=== PATIENT | female | born 1945 | race Caucasian/White ===

== ENCOUNTER 2017-02-10 04:23 | Observation (INO) ==
--- NOTE | 2017-02-10 04:39 | Emergency Department Note ---
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 She awoke prior to arrival with a relatively severe epigastric burning pain associated with nausea and one episode of vomiting. She states she threw up some yellow, bitter fluid without blood. She was having pain in the epigastrium that did not radiate to her chest or back. She denies that she is having chest pain, palpitations or any significant shortness of breath. She states she might have been "slightly short of breath". She has not been having diaphoresis, weakness or dizziness. She denies diarrhea, constipation or any bloody or black stools. She denies any type of fevers or chills. She has not had any recent change in food or concerning a foodborne illness nor any ill exposures. She has come in by EMS and states that her pain is now "hurtin' just a little". She still states she has slight nausea. She denies any similar episodes in the past. She states she has had a hysterectomy in the past but denies cholecystectomy, appendectomy or any other abdominal procedures. 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 Denies: diarrhea, fever, chills , constipation, dysuria, hematemesis, hematochezia, melena, hematuria, anorexia , syncope Treatments prior to arrival: none - Related Data Home Medications Medication Instructions Recorded Confirmed Cilostazol 100 mg PO BID 05/22/15 02/10/17 Levothyroxine [Synthroid] 0.05 mg PO DAILY 05/22/15 02/10/17 Lisinopril [Zestril] 5 mg PO DAILY 05/22/15 02/10/17 Lovastatin 40 mg PO HS 05/22/15 02/10/17 Metoprolol [Lopressor] 25 mg PO BID 05/22/15 02/10/17 Ranolazine [Ranexa] 500 mg PO BID 05/22/15 02/10/17 metFORMIN [Glucophage] 500 mg PO DAILY 05/22/15 02/10/17 Clopidogrel [Plavix] 75 mg PO DAILY 07/01/16 02/10/17 Allergies Allergy/AdvReac Type Severity Reaction Status Date / Time Penicillins Allergy Hives Verified 02/10/17 04:29 All systems ED: reviewed and negative except as stated. Abdominal Pain PMH - Past Medical History Medical history: Reports: diabetes, hyperlipidemia, hypertension, myocardial infarction, thyroid disease Denies: diverticulitis, pancreatitis, GI bleed Female Surgical History: Reports: angioplasty/stent, carotid endarterectomy ( Bilateral), cataract, hysterectomy Psychiatric history: Reports: no psych history - Social History Smoking status: Never smoker Alcohol use: Reports: none Physical Exam - General Limitations: no limitations General appearance: alert, in no apparent distress - Head Head exam: atraumatic, normocephalic, normal inspection - Eye Eye exam: Present: normal appearance, PERRL, EOMI. Absent: scleral icterus, conjunctival injection - ENT ENT exam: normal exam, normal oropharynx, mucous membranes moist - Neck Neck exam: Present: normal inspection, full ROM, trachea midline - Chest Chest inspection: Present: normal inspection, symmetric chest wall rise - Respiratory Respiratory exam: Present: normal lung sounds bilaterally. Absent: respiratory distress, wheezes, prolonged expiratory phase - Cardiovascular Cardiovascular exam: Present: regular rate, normal rhythm, normal heart sounds. Absent: tachycardia - Abdominal Exam Abdominal exam: Present: soft, tenderness, normal bowel sounds. Absent: distention, guarding, rebound, rigidity, psoas sign, obturator sign, tenderness at McBurney's Point, pulsatile mass Abdominal tenderness: Present: RUQ, epigastrium, moderate - Extremities Exam Extremities exam: Present: normal inspection, full ROM, normal capillary refill. Absent: tenderness, pedal edema, calf tenderness - Expanded Lower Extremity Exam Neurovascular/Tendon exam: Present: normal capillary refill. Absent: motor deficit, sensory deficit, tendon deficit Gait: observed and normal - Back Exam Back exam: Present: normal inspection, full ROM. Absent: tenderness, CVA tenderness (R), CVA tenderness (L) - Neurological Exam Neurological exam: Present: alert, oriented X3 - Psychiatric Psychiatric exam: Present: normal affect, normal mood - Skin Skin exam: Present: warm, dry, intact, normal color. Absent: diaphoresis, pallor Course Course Narrative: 0515: Given the patient's mild hyperkalemia, decreased bicarbonate and acute renal insufficiency with an episode of undifferentiated abdominal pain and vomiting, I believe it would be prudent to have her in the hospital for continued hydration and observation. We are establishing an IV and will administer a fluid bolus, maintenance saline and a dose of Protonix. I am awaiting the official radiology read prior to contacting Dr. Jenkins for the observation of the patient. 0610: The preliminary radiologist reading is in concurrence with my own. We are calling Dr. Jenkins to coordinate her further inpatient observation. Vital Signs Temperature 97.7 F 02/10/17 04:24 Pulse Rate 82 02/10/17 04:24 Respiratory Rate 22 02/10/17 04:24 Blood Pressure 148/78 02/10/17 04:24 O2 Sat by Pulse Oximetry 100 02/10/17 04:24 Temperature 97.7 F 02/10/17 04:24 Pulse Rate 77 02/10/17 05:36 Respiratory Rate 20 02/10/17 05:36 Blood Pressure 135/62 02/10/17 05:36 O2 Sat by Pulse Oximetry 99 02/10/17 05:36 Oxygen Delivery Oxygen Delivery Room Air Abdominal Pain - Differential Diagnosis Differential Diagnosis: Likely: abdominal pain non-specific, pancreatitis, other (Biliary colic) - Medical Records Medical records reviewed: Yes I reviewed the patient's medical records. - Lab Data Lab results reviewed: Yes I reviewed the patient's lab results. Result diagrams: 02/10/17 04:48 02/10/17 04:48 Lab Results 02/10/17 02/10/17 02/10/17 Range/Units 04:45 04:48 04:48 WBC 5.7 (4.3-11.1) K/mcL RBC 2.86 L (3.82-4.97) M/mcL Hgb 9.0 L (11.5-15.4) g/dL Hct 27.6 L (35.3-44.9) % MCV 96.5 (83.0-100.0) fL MCH 31.5 (28.0-33.3) pg MCHC 32.6 (31.6-35.5) g/dL RDW 13.5 (11.5-14.5) % Plt Count 195 (140-400) K/mcL MPV 10.0 (9.4-12.4) fL Immature Gran % 0.4 (0-4) % Seg Neutrophils % 75.6 % Lymphocytes % 15.6 % Monocytes % 6.8 % Eosinophils % 1.4 % Basophils % 0.2 % Neutrophils # 4.3 (1.6-8.9) K/mcL Lymphocytes # 0.9 (0.6-4.6) K/mcL Monocytes # 0.4 (0.0-1.3) K/mcL Eosinophils # 0.1 (0.0-0.6) K/mcL Basophils # 0.0 (0.0-0.2) K/mcL Sodium 139 (136-145) mEq/L Potassium 5.2 H (3.5-4.5) mEq/L Chloride 110 H (98-109) mEq/L Carbon Dioxide 18 L (19-29) mEq/L BUN 23 H (7-20) mg/dL Creatinine 1.89 H (0.57-1.11) mg/dL Est GFR ( Amer) 32 L (> 60) Est GFR (Non-Af Amer) 26 L (> 60) BUN/Creatinine Ratio 12 (6-26) Glucose 112 H (70-99) mg/dL Calculated Osmolality 292 (280-300) Calcium 9.3 (8.6-10.8) mg/dL Total Bilirubin 0.4 (0.2-1.2) mg/dL Direct Bilirubin 0.2 (0.0-0.5) mg/dL Indirect Bilirubin 0.2 (0.0-1.2) mg/dL AST 14 (5-34) Units/L ALT 12 (0-55) Units/L Alkaline Phosphatase 57 (38-126) Units/L Troponin I (0-0.03) ng/mL Serum Total Protein 6.7 (6.0-8.3) g/dL Albumin 3.9 (3.5-5.0) g/dL Globulin 2.8 (2.4-3.5) g/dL Albumin/Globulin Ratio 1.4 (1.1-2.2) Amylase 66 (25-125) Units/L Lipase 42 (8-78) Units/L Urine Color Yellow (Yellow) Urine Clarity Clear (Clear) Urine pH 5.0 (5.0-8.0) pH Units Ur Specific [place] 1.025 (1.010-1.025) Urine Protein Negative (Neg-Trace) mg/dL Urine Glucose (UA) Normal (Normal) mg/dL Urine Ketones Trace H (Negative) mg/dL Urine Blood Negative (Negative) Urine Nitrite Positive A (Negative) Urine Bilirubin Small H (Negative) Urine Urobilinogen Normal (Normal) mg/dL Ur Leukocyte Esterase Small H (Negative) Urine Microscopic RBC 3-5 H (0-3) per hpf Urine Microscopic WBC 5-15 H (0-3) per hpf Ur Squamous Epith Cells Few (None-Few) per lpf Urine Bacteria Few (None-Few) per hpf Ur Culture Indicated? YES A (NO) 02/10/17 Range/Units 04:48 WBC (4.3-11.1) K/mcL RBC (3.82-4.97) M/mcL Hgb (11.5-15.4) g/dL Hct (35.3-44.9) % MCV (83.0-100.0) fL MCH (28.0-33.3) pg MCHC (31.6-35.5) g/dL RDW (11.5-14.5) % Plt Count (140-400) K/mcL MPV (9.4-12.4) fL Immature Gran % (0-4) % Seg Neutrophils % % Lymphocytes % % Monocytes % % Eosinophils % % Basophils % % Neutrophils # (1.6-8.9) K/mcL Lymphocytes # (0.6-4.6) K/mcL Monocytes # (0.0-1.3) K/mcL Eosinophils # (0.0-0.6) K/mcL Basophils # (0.0-0.2) K/mcL Sodium (136-145) mEq/L Potassium (3.5-4.5) mEq/L Chloride (98-109) mEq/L Carbon Dioxide (19-29) mEq/L BUN (7-20) mg/dL Creatinine (0.57-1.11) mg/dL Est GFR ( Amer) (> 60) Est GFR (Non-Af Amer) (> 60) BUN/Creatinine Ratio (6-26) Glucose (70-99) mg/dL Calculated Osmolality (280-300) Calcium (8.6-10.8) mg/dL Total Bilirubin (0.2-1.2) mg/dL Direct Bilirubin (0.0-0.5) mg/dL Indirect Bilirubin (0.0-1.2) mg/dL AST (5-34) Units/L ALT (0-55) Units/L Alkaline Phosphatase (38-126) Units/L Troponin I 0.00 (0-0.03) ng/mL Serum Total Protein (6.0-8.3) g/dL Albumin (3.5-5.0) g/dL Globulin (2.4-3.5) g/dL Albumin/Globulin Ratio (1.1-2.2) Amylase (25-125) Units/L Lipase (8-78) Units/L Urine Color (Yellow) Urine Clarity (Clear) Urine pH (5.0-8.0) pH Units Ur Specific [place] (1.010-1.025) Urine Protein (Neg-Trace) mg/dL Urine Glucose (UA) (Normal) mg/dL Urine Ketones (Negative) mg/dL Urine Blood (Negative) Urine Nitrite (Negative) Urine Bilirubin (Negative) Urine Urobilinogen (Normal) mg/dL Ur Leukocyte Esterase (Negative) Urine Microscopic RBC (0-3) per hpf Urine Microscopic WBC (0-3) per hpf Ur Squamous Epith Cells (None-Few) per lpf Urine Bacteria (None-Few) per hpf Ur Culture Indicated? (NO) - Radiology Data Radiology results reviewed: Yes I reviewed the patient's radiology results. CT is performed of the abdomen and pelvis without IV or oral contrast. The basilar lung is free of infiltrate, effusion or mass. The liver, pancreas and spleen are unremarkable with exception of a few systolic calcifications. The kidneys or without stone or obstruction but there is a moderate size benign right renal cyst present. The bowel is without inflammatory change, obstruction or perforation. She does have diverticular disease throughout the sigmoid colon without inflammation or perforation. The aorta is normal in caliber. Gallbladder is without distention, wall thickening, edema or visible stone. No acute Abdominal structural processes seem to account for this patient 's epigastric pain and vomiting. This is on my interpretation. Impressions Abdomen/Pelvis CT 02/10/17 04:40 IMPRESSION: No evidence of acute process within the abdomen pelvis with multiple incidental/chronic findings as detailed above. D/ / Luzmaria Gaines MD / Luzmaria Gaines MD Interpreting Provider: Luzmaria Gaines MD - EKG Data EKG attestation: Yes I reviewed and interpreted this EKG. EKG shows normal: sinus rhythm, axis, intervals, QRS complexes, ST-T waves Rate: normal (75) Interpretation: no acute changes, nonspecific ST-T wave changes
[2017-02-10] MEDS ORDERED: Ondansetron ODT 4 MG TAB.RAPDIS SL ONE (04:41)
[2017-02-10 04:53] LABS: Basophils % 0.2 %; Eosinophils # 0.1 K/mcL (0.0-0.6); Eosinophils % 1.4 %; Hematocrit 27.6 % (35.3-44.9); Immature Granulocytes % 0.4 % (0-4); Lymphocytes # 0.9 K/mcL (0.6-4.6); Lymphocytes % 15.6 %; Mean Corpuscular HGB Conc 32.6 g/dL (31.6-35.5); Mean Corpuscular Hemoglobin 31.5 pg (28.0-33.3); Mean Corpuscular Volume 96.5 fL (83.0-100.0); Monocytes # 0.4 K/mcL (0.0-1.3); Monocytes % 6.8 %; Neutrophils # 4.3 K/mcL (1.6-8.9); Platelet Count 195 K/mcL (140-400); Red Blood Count 2.86 M/mcL (3.82-4.97); Red Cell Distribution Width 13.5 % (11.5-14.5); Segmented Neutrophils % 75.6 %
[2017-02-10 05:04] LABS: Bilirubin,Urine Small (Negative); Blood,Urine Negative (Negative); Clarity,Urine Clear (Clear); Color,Urine Yellow (Yellow); Glucose,Urine (UA) Normal (Normal); Ketones,Urine Trace mg/dL (Negative); Leukocyte Esterase,Urine Small (Negative); Nitrite,Urine Positive (Negative); Protein,Urine Negative (Neg-Trace); Specific Gravity,Urine 1.025 (1.010-1.025); Urobilinogen,Urine Normal (Normal)
[2017-02-10 05:11] LABS: Squamous Epithelial Cell,Urine Few per lpf (None-Few)
[2017-02-10 05:12] LABS: Bacteria,Urine Few per hpf (None-Few)
[2017-02-10 05:12] LABS: Albumin 3.9 g/dL (3.5-5.0); Albumin/Globulin Ratio 1.4 (1.1-2.2); Bilirubin,Direct 0.2 mg/dL (0.0-0.5); Bilirubin,Indirect 0.2 mg/dL (0.0-1.2); Bilirubin,Total 0.4 mg/dL (0.2-1.2); Calcium 9.3 mg/dL (8.6-10.8); Globulin 2.8 g/dL (2.4-3.5); Potassium 5.2 mEq/L (3.5-4.5); Total Protein 6.7 g/dL (6.0-8.3)
[2017-02-10] MEDS ORDERED: 0.9 % Sodium Chloride 500 ML IVC ONE (05:18)
[2017-02-10] MEDS ORDERED: Pantoprazole 40 MG VIAL IVP ONE (05:18)
[2017-02-10] MEDS ORDERED: 0.9 % Sodium Chloride 1,000 ML IVC SCH ×2 (05:30→08:16)
[2017-02-10] MEDS ORDERED: *HR* Dextrose 50 % in Water (Syg) 50 ML SYRINGE IVP PRN (08:16)
[2017-02-10] MEDS ORDERED: MOM Conc 10 ML UD.LIQ PO PRN (08:16)
[2017-02-10] MEDS ORDERED: Acetaminophen 325 MG TABLET PO PRN (08:16)
[2017-02-10] MEDS ORDERED: D5% in Water 1,000 ML IVC PRN (08:16)
[2017-02-10] MEDS ORDERED: Dextrose Gel 15 GM PO PRN ×2 (08:16)
[2017-02-10] MEDS ORDERED: Naloxone 0.4 MG/ML INJ IVP PRN (08:16)
[2017-02-10] MEDS ORDERED: Ondansetron 4 MG/2 ML VIAL IVP PRN (08:16)
[2017-02-10] MEDS: Insulin LISPRO 300 UNITS/3 ML VIAL SQ SCH ×3 (08:43→16:37)
[2017-02-10] MEDS: Ranolazine 500 MG TAB.ER.12H PO SCH ×2 (08:49→20:37)
[2017-02-10] MEDS: Levothyroxine 25 MCG TABLET PO SCH (08:52)
--- NOTE | 2017-02-10 11:44 | Internal Med History&Physical ---
Date of Encounter: 02/10/17 Time of Encounter: 11:15 Assessment and Plan (1) Abdominal pain Current visit: Yes Status: Acute Now resolved. CT scan of abdomen/pelvis was generally unremarkable. We will observe without further workup at this time. Qualifiers: Abdominal location: epigastric Qualified Code(s): R10.13 - Epigastric pain (2) UTI (urinary tract infection) Current visit: Yes Status: Acute She has been started on Rocephin IV. Qualifiers: Urinary tract infection type: acute cystitis Hematuria presence: without hematuria Qualified Code(s): N30.00 - Acute cystitis without hematuria (3) Acute renal insufficiency Current visit: Yes Status: Acute Will hold lisinopril and give IV fluids. Recheck labs in a.m. (4) Hyperkalemia Current visit: Yes Status: Acute Suspect secondary to renal insufficiency and lisinopril. We will give IV fluids and hold lisinopril. Recheck labs in a.m. (5) Anemia Current visit: Yes Status: Acute Will order anemia testing. Qualifiers: Anemia type: unspecified type Qualified Code(s): D64.9 - Anemia, unspecified Internal Medicine - H&P: HPI Chief complaint: Vomiting, abdominal pain Admitted From: Home Plans for Post Hospital Care: Home History of present illness: Ms. Tomas is a 71 year old female who came to emergency room stating she had awakened approximately 0400 to go to the bathroom. She felt nauseated and had an episode of vomiting. She had epigastric abdominal pain. There was no blood in the vomitus. She did not feel well so came to the emergency room. She was evaluated and found to have anemia, acute renal failure, hyperkalemia, and possibly UTI. She was admitted to Med[facility] floor for ongoing care needs. Past Med Surg Social Fam HX - Past Medical History Medical history: diabetes, hyperlipidemia, hypertension, myocardial infarction, thyroid disease Psychiatric history: no psych history - Social History Smoking Status: Never smoker Smokeless Tobacco Status: No Alcohol use: none Drug use: none Internal Medicine - H&P: Meds Cilostazol 100 mg PO BID 05/22/15 [History] Levothyroxine [Synthroid] 0.05 mg PO DAILY 05/22/15 [History] Lisinopril [Zestril] 5 mg PO DAILY 05/22/15 [History] Lovastatin 40 mg PO HS 05/22/15 [History] Metoprolol [Lopressor] 25 mg PO BID 05/22/15 [History] Ranolazine [Ranexa] 500 mg PO BID 05/22/15 [History] metFORMIN [Glucophage] 500 mg PO DAILY 05/22/15 [History] Clopidogrel [Plavix] 75 mg PO DAILY 07/01/16 [History] 3 Allergy/AdvReac Type Severity Reaction Status Date / Time Penicillins Allergy Hives Verified 02/10/17 04:29 All Systems PM: A 10-system review of systems was performed and is negative for pertinent findings except as documented above in the HPI. Review of systems: Gen.: She states her weight has been stable the past few months Cardiovascular: She has history of hypertension. She has known ASPVD and ASHD with a cardiac stent placed approximately 2011. She has not had further stress test since the stent. She denies [place] heart failure DVT or pulmonary embolus Respiratory: She smoked from age [age] up to 4 packs per day. She denies known chronic lung disease and does not use home oxygen. GI: She denies disorders of her liver gallbladder or exocrine pancreas : She denies hematuria dysuria or kidney stones Neurologic: She denies large distribution strokes or seizures Endocrine: She was diagnosed with DM 2 approximately 2006. She has hypothyroidism and hyperlipidemia Hematology/oncology: She denies blood disorders cancers or anemia Psychiatric: She denies anxiety depression or other mental health issues [place] skeletal: She denies arthritis gout or other bone joint or muscle disorders. - Constitutional Vitals: Temp Pulse Resp BP Pulse Ox 98.5 F 79 17 111/59 100 02/10/17 10:44 02/10/17 10:44 02/10/17 10:44 02/10/17 10:44 02/10/17 10:44 Exam: Gen.: She is a well-developed well-nourished female who appears in no acute distress at present time. HEENT: Head is atraumatic and normocephalic. Eyes: EOMI. There is no scleral icterus. Mouth: Mucosa is moist. Neck: Supple and nontender. There is no thyromegaly or adenopathy noted. Heart: Regular without murmurs gallops or ectopics Lungs: No wheezes or crackles are heard. Abdomen:. There is mild tenderness to palpation in the epigastric area. No masses or guarding noted. Bowel sounds are normal. Extremities: There is no cyanosis edema or clubbing noted. Dorsalis pedis and posttibial pulses are 1-2 over 2 bilaterally. Neurologic: Mental status: She is talkative and a good historian. Cranial nerves: Smile is symmetric. Forehead wrinkles bilaterally. Tongue protrudes midline. EOMI. Motor: There is no pronator drift. Cerebellar: Fair to nose is intact bilaterally. Skin: Warm and dry Internal Med - H&P Results - Labs CBC & Chem 7: 02/10/17 04:48 02/10/17 04:48
[2017-02-10 18:04] LABS: Folate 18.4 ng/mL (7.0-31.4)
--- NOTE | 2017-02-10 19:05 | Electrocardiograph Report ---
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
[2017-02-10 19:27] LABS: Ferritin 20 ng/ml (5-204)
[2017-02-10 19:30] LABS: % Iron Saturation 13 % (15-50); Iron 53 mcg/dL (50-170); Transferrin 284 mg/dL (180-382)
[2017-02-10] MEDS ORDERED: Insulin LISPRO 300 UNITS/3 ML VIAL SQ SCH (21:00)
[2017-02-11 06:10] LABS: Basophils % 0.2 %; Eosinophils # 0.1 K/mcL (0.0-0.6); Eosinophils % 2.3 %; Hematocrit 25.2 % (35.3-44.9); Hemoglobin 8.2 g/dL (11.5-15.4); Lymphocytes % 22.2 %; Mean Corpuscular HGB Conc 32.5 g/dL (31.6-35.5); Mean Corpuscular Hemoglobin 31.8 pg (28.0-33.3); Mean Corpuscular Volume 97.7 fL (83.0-100.0); Mean Platelet Volume 10.3 fL (9.4-12.4); Monocytes # 0.3 K/mcL (0.0-1.3); Monocytes % 7.5 %; Platelet Count 180 K/mcL (140-400); Red Blood Count 2.58 M/mcL (3.82-4.97); Red Cell Distribution Width 13.5 % (11.5-14.5); Segmented Neutrophils % 67.8 %
[2017-02-11] MEDS: Levothyroxine 25 MCG TABLET PO SCH (06:25)
[2017-02-11 06:27] LABS: BUN/Creatinine Ratio 11 (6-26); Blood Urea Nitrogen 10 mg/dL (7-20); Calcium 8.7 mg/dL (8.6-10.8); Carbon Dioxide 18 mEq/L (19-29); Chloride 113 mEq/L (98-109); Glucose 107 mg/dL (70-99); Osmolality,Calculated 290 (280-300); Potassium 4.6 mEq/L (3.5-4.5); Sodium 140 mEq/L (136-145); eGFR For African Americans > 60 (> 60); eGFR For Non-African Americans 59 (> 60)
[2017-02-11 06:41] VITALS: BP 117/59
[2017-02-11] MEDS: Insulin LISPRO 300 UNITS/3 ML VIAL SQ SCH (07:21)
[2017-02-11] MEDS: Ranolazine 500 MG TAB.ER.12H PO SCH (09:02)
--- NOTE | 2017-02-11 10:22 | Discharge Summary ---
Date of Encounter: 02/11/17 Time of Encounter: 10:12 - Discharge Diagnosis (1) Abdominal pain Priority: Primary Status: Resolved Qualifiers: Abdominal location: epigastric Qualified Code(s): R10.13 - Epigastric pain (2) UTI (urinary tract infection) Priority: Secondary Status: Acute Qualifiers: Urinary tract infection type: acute cystitis Hematuria presence: without hematuria Qualified Code(s): N30.00 - Acute cystitis without hematuria (3) Acute renal insufficiency Priority: Secondary Status: Resolved (4) Hyperkalemia Priority: Secondary Status: Acute (5) Anemia Priority: Secondary Status: Acute Qualifiers: Anemia type: unspecified type Qualified Code(s): D64.9 - Anemia, unspecified - Discharge Medications Prescriptions: Cefuroxime PO [Ceftin] 500 mg PO Q12HR #6 tablet Ascorbic Acid [Vitamin C] 500 mg PO DAILY #30 tablet.er Ferrous Sulfate 325 mg PO DAILY #30 tablet Lactobacillus [Culturelle] 1 each PO BID #6 cap.sprink Home Medications: Cilostazol 100 mg PO BID 05/22/15 [History] Levothyroxine [Synthroid] 0.05 mg PO DAILY 05/22/15 [History] Lovastatin 40 mg PO HS 05/22/15 [History] Metoprolol [Lopressor] 25 mg PO BID 05/22/15 [History] Ranolazine [Ranexa] 500 mg PO BID 05/22/15 [History] metFORMIN [Glucophage] 500 mg PO DAILY 05/22/15 [History] Clopidogrel [Plavix] 75 mg PO DAILY 07/01/16 [History] Ascorbic Acid [Vitamin C] 500 mg PO DAILY #30 tablet.er 02/11/17 [Rx] Cefuroxime PO [Ceftin] 500 mg PO Q12HR #6 tablet 02/11/17 [Rx] Ferrous Sulfate 325 mg PO DAILY #30 tablet 02/11/17 [Rx] Lactobacillus [Culturelle] 1 each PO BID #6 cap.sprink 02/11/17 [Rx] Allergies/Adverse Reactions: 3 Allergy/AdvReac Type Severity Reaction Status Date / Time Penicillins Allergy Hives Verified 02/10/17 04:29 Date of admission: 02/10/17 06:59 Primary care physician: Harry Quintero CNP Consults: 02/10/17 07:52 Consult to Nutrition [CONS] Routine Comment: Consulting Provider: NUTRITION Reason for Dietary Consult: MST Score - Patient Status Disposition: Home, Self-Care Condition: Good Functional capacity at discharge: independent ambulation Overall status at discharge: patient is progressing back to baseline - Discharge Instructions Follow Up With: Harry Quintero CNP [Advanced Practice Nurse] - 1 week - Diet and Activity Activity: resume usual activities as tolerated Diet: advance to your usual diet Hospital course: Ms. Tomas is a 71 year old female who came to emergency room stating she had awakened approximately 0400 to go to the bathroom. She felt nauseated and had an episode of vomiting. She had epigastric abdominal pain. There was no blood in the vomitus. She did not feel well so came to the emergency room. She was evaluated and found to have anemia, acute renal failure, hyperkalemia, and possibly UTI. She was admitted to [facility] for ongoing care needs. Initial orders were written by the emergency room physician. I saw her on February 10 and performed a history and physical. She had no further abdominal pain or vomiting after admission. She was started empirically on Rocephin for UTI. A final urine culture report is pending at time of this dictation. There was preliminary growth showing greater than 100,000 gram- negative rods. She will continue on Ceftin 500 mg twice a day for 3 additional days at discharge. WBC remained normal and there was resolution of the left shift on the day of discharge. Her lisinopril was held and she was given IV fluids. Potassium improved to 4.6 and BUN and creatinine normalized to 10 and 0.93 respectively with estimated GFR 59 on the day of discharge. She will remain off lisinopril at discharge. Anemia testing showed iron 53, transferrin saturation 13%, transferrin 284, ferritin 20, B12 305, and folate 18.4. She will be prescribed ferrous sulfate with vitamin C at discharge. She will be discharged home and follow with her PCP Harry Quintero CNP within 1 week. - Time Spent with Patient Total time spent providing and/or coordinating discharge services: - Constitutional Vitals: Temp Pulse Resp BP Pulse Ox 98.1 F 78 16 117/59 100 02/11/17 06:39 02/11/17 06:39 02/11/17 06:39 02/11/17 06:39 02/11/17 06:39
== END 2017-02-11 11:30 | disposition home or self-care (01) ==
LOC: EMEROOPIK 04:23 → INPPIK 04:23
PROVIDERS: ADMIT Internal Medicine; ATTEND Internal Medicine

== ENCOUNTER 2017-06-06 16:26 | Observation (INO) ==
--- NOTE | 2017-06-06 16:53 | Emergency Department Note ---
Disposition Clinical Impression: Syncope, Anemia, Hyperkalemia Disposition: Admitted As Inpatient Condition: Fair Referrals: Harry Quintero, MAIL CENSOR [Primary Care Provider] - Forms: ED Satisfaction Letter Time of Disposition: 17:47 (obsv [facility]aly [facility]) Fall HPI - General Chief Complaint: ED Fall Stated Complaint: fall Time Seen by Provider: 06/06/17 16:35 Source: patient Mode of arrival: ambulatory Limitations: no limitations Nursing Notes Reviewed: Yes Vital Signs Reviewed: Yes - History of Present Illness HPI Narrative: 71-year-old female who has had 2 syncopal episodes at home today the first episode she had gotten up she was residential between the bathroom and the kitchen when she collapsed second episode occurred while in the living room she said when she stands up everything blacks out and she collapses she denies hurting or injuring anything denies neck pain thoracic or lumbar pain as result of falling patient has had no loss of bladder bladder control she denies seizure activity she has had cardiac stenting vascular stenting she is not sure if this is the etiology for it as a result she is here to be evaluated Pt Subjective Complaint: fall Onset (ago): hour(s) (10) Fall From: standing Fall Witnessed: no Place Fall Occurred: home Loss of Consciousness: yes, second(s) Prolonged Down Time?: no Symptoms Prior to Fall: lightheadedness, dizziness Context: history of frequent falls Severity: moderate Severity scale (1-10): 5 Associated symptoms (after fall): Reports: weakness, shortness of breath, lightheaded, vertigo. Denies: headache, neck pain, numbness, chest pain, abdominal pain, hematuria, unable to walk, confusion - Related Data Home Medications Medication Instructions Recorded Confirmed Cilostazol 100 mg PO BID 05/22/15 02/10/17 Levothyroxine [Synthroid] 0.05 mg PO DAILY 05/22/15 02/10/17 Lovastatin 40 mg PO HS 05/22/15 02/10/17 Metoprolol [Lopressor] 25 mg PO BID 05/22/15 02/10/17 Ranolazine [Ranexa] 500 mg PO BID 05/22/15 02/10/17 metFORMIN [Glucophage] 500 mg PO DAILY 05/22/15 02/10/17 Clopidogrel [Plavix] 75 mg PO DAILY 07/01/16 02/10/17 Previous Rx's Medication Instructions Recorded Ascorbic Acid [Vitamin C] 500 mg PO DAILY #30 tablet.er 02/11/17 Cefuroxime PO [Ceftin] 500 mg PO Q12HR #6 tablet 02/11/17 Ferrous Sulfate 325 mg PO DAILY #30 tablet 02/11/17 Lactobacillus [Culturelle] 1 each PO BID #6 cap.sprink 02/11/17 Acetaminophen [Tylenol] 500 mg PO Q6HR PRN #20 tablet 03/22/17 Sulfamethoxazole/Trimeth DS 1 each PO BID #20 tablet 03/22/17 [Bactrim DS] Allergies Allergy/AdvReac Type Severity Reaction Status Date / Time Penicillins Allergy Hives Verified 03/22/17 17:51 All systems ED: reviewed and negative except as stated. Review of Systems: As Per HPI Constitutional: Reports: weakness. Denies: fever, chills Eyes: Denies: eye pain, eye discharge ENT ED: Denies: ear pain, throat pain, dental pain, congestion Cardiovascular: Reports: palpitations, syncope. Denies: chest pain, dyspnea on exertion, paroxysmal nocturnal dyspnea Respiratory: Denies: cough, dyspnea, wheezes Gastrointestinal: Denies: abdominal pain, nausea, vomiting Genitourinary: Denies: urgency, dysuria, frequency Musculoskeletal: Denies: back pain, neck pain Integumentary: Denies: rash, abrasion Neurological: Reports: weakness, confusion. 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 - Social History Smoking Status: Former smoker Alcohol use: Reports: none Drug use: Reports: none Physical Exam - General Limitations: other General appearance: alert, in no apparent distress, anxious - Head Head exam: atraumatic, normocephalic, normal inspection - Eye Eye exam: Present: normal appearance, PERRL, EOMI - ENT ENT exam: normal exam, normal oropharynx, mucous membranes moist, TM's normal bilaterally, normal external ear exam - Neck Neck exam: Present: normal inspection, full ROM, trachea midline - Chest Chest inspection: Present: normal inspection, symmetric chest wall rise - Respiratory Respiratory exam: Present: normal lung sounds bilaterally - Cardiovascular Cardiovascular exam: Present: regular rate, normal rhythm, normal heart sounds - Abdominal Exam Abdominal exam: Present: soft, Non-Tender, normal bowel sounds. Absent: mass, pulsatile mass - Extremities Exam Extremities exam: Present: normal inspection, full ROM, normal capillary refill. Absent: tenderness, pedal edema, joint swelling, calf tenderness - Expanded Lower Extremity Exam Neurovascular/Tendon exam: Present: normal capillary refill, normal fine/light touch Gait: observed and normal - Back Exam Back exam: Present: normal inspection, full ROM. Absent: muscle spasm - Neurological Exam Neurological exam: Present: alert, oriented X3, CN II-XII intact, normal gait - Psychiatric Psychiatric exam: Present: normal affect, normal mood - Skin Skin exam: Present: warm, dry, intact, normal color Course Course Narrative: 71-year-old female was seen and examined on laboratory is obtained we will admit her for observation and serial enzymes maintain her on a cardiac rehabilitation specialist to make sure that she does not have any cardiac events she has had multiple stenting both cardiac and vascular quiros as result making sure that she has not had evidence of a stroke myocardial infarction or infectious etiology spoke with Dr. Jenkins he has agrees Vital Signs Temperature 98.1 F 06/06/17 16:28 Pulse Rate 78 06/06/17 16:28 Respiratory Rate 18 06/06/17 16:28 Blood Pressure 120/53 06/06/17 16:28 O2 Sat by Pulse Oximetry 100 06/06/17 16:28 Temperature 98.1 F 06/06/17 16:28 Pulse Rate 78 06/06/17 16:28 Respiratory Rate 18 06/06/17 16:28 Blood Pressure 120/53 06/06/17 16:28 O2 Sat by Pulse Oximetry 100 06/06/17 16:28 Oxygen Delivery Oxygen Delivery Room Air Fall - Differential Diagnosis Likely: syncope, traumatic injury - Medical Records Medical records reviewed: Yes I reviewed the patient's medical records. - Lab Data Lab results reviewed: Yes I reviewed the patient's lab results. Result diagrams: 06/06/17 17:18 06/06/17 17:18 Lab Results 06/06/17 06/06/17 06/06/17 Range/Units 16:32 17:10 17:18 WBC (4.3-11.1) K/mcL RBC (3.82-4.97) M/mcL Hgb (11.5-15.4) g/dL Hct (35.3-44.9) % MCV (83.0-100.0) fL MCH (28.0-33.3) pg MCHC (31.6-35.5) g/dL RDW (11.5-14.5) % Plt Count (140-400) K/mcL MPV (9.4-12.4) fL Immature Gran % (0-4) % Seg Neutrophils % % Lymphocytes % % Monocytes % % Eosinophils % % Basophils % % Neutrophils # (1.6-8.9) K/mcL Lymphocytes # (0.6-4.6) K/mcL Monocytes # (0.0-1.3) K/mcL Eosinophils # (0.0-0.6) K/mcL Basophils # (0.0-0.2) K/mcL PT (9.4-12.1) Seconds INR APTT 27.0 (26.0-36.0) Seconds Sodium (136-145) mEq/L Potassium (3.5-5.1) mEq/L Chloride (98-107) mEq/L Carbon Dioxide (23-29) mEq/L BUN (8-23) mg/dL Creatinine (0.60-1.20) mg/dL Est GFR ( Amer) (> 60) Est GFR (Non-Af Amer) (> 60) BUN/Creatinine Ratio (6-26) Glucose (70-105) mg/dL POC Glucose 118 H (58-89) Calculated Osmolality (280-300) Calcium (8.6-10.3) mg/dL Total Bilirubin (0.3-1.0) mg/dL AST (13-39) Units/L ALT (7-52) Units/L Alkaline Phosphatase (34-104) Units/L Troponin I (< 0.04) ng/mL Serum Total Protein (6.4-8.9) g/dL Albumin (3.5-5.7) g/dL Globulin (2.4-3.5) g/dL Albumin/Globulin Ratio (1.1-2.2) Urine Color Yellow (Yellow) Urine Clarity Cloudy A (Clear) Urine pH 5.0 (5.0-8.0) pH Units Ur Specific Maple 1.015 (1.010-1.025) Urine Protein Trace (Neg-Trace) mg/dL Urine Glucose (UA) Normal (Normal) mg/dL Urine Ketones Trace H (Negative) mg/dL Urine Blood Negative (Negative) Urine Nitrite Negative (Negative) Urine Bilirubin Negative (Negative) Urine Urobilinogen Normal (Normal) mg/dL Ur Leukocyte Esterase Small H (Negative) Urine Microscopic WBC 30-50 H (0-3) per hpf Ur Squamous Epith Cells Many H (None-Few) per lpf Urine Bacteria Moderate H (None-Few) per hpf Urine Mucus Moderate H (Few) Ur Culture Indicated? NO. (NO) 06/06/17 06/06/17 06/06/17 Range/Units 17:18 17:18 17:18 WBC 6.9 (4.3-11.1) K/mcL RBC 2.88 L (3.82-4.97) M/mcL Hgb 9.1 L (11.5-15.4) g/dL Hct 27.9 L (35.3-44.9) % MCV 96.9 (83.0-100.0) fL MCH 31.6 (28.0-33.3) pg MCHC 32.6 (31.6-35.5) g/dL RDW 13.5 (11.5-14.5) % Plt Count 195 (140-400) K/mcL MPV 9.3 L (9.4-12.4) fL Immature Gran % 0.3 (0-4) % Seg Neutrophils % 79.3 % Lymphocytes % 10.7 % Monocytes % 8.2 % Eosinophils % 1.4 % Basophils % 0.1 % Neutrophils # 5.5 (1.6-8.9) K/mcL Lymphocytes # 0.7 (0.6-4.6) K/mcL Monocytes # 0.6 (0.0-1.3) K/mcL Eosinophils # 0.1 (0.0-0.6) K/mcL Basophils # 0.0 (0.0-0.2) K/mcL PT 11.0 (9.4-12.1) Seconds INR 1.0 APTT (26.0-36.0) Seconds Sodium 134 L (136-145) mEq/L Potassium 5.3 H (3.5-5.1) mEq/L Chloride 105 (98-107) mEq/L Carbon Dioxide 24 (23-29) mEq/L BUN 26 H (8-23) mg/dL Creatinine 1.97 H (0.60-1.20) mg/dL Est GFR ( Amer) 30 L (> 60) Est GFR (Non-Af Amer) 25 L (> 60) BUN/Creatinine Ratio 13 (6-26) Glucose 96 (70-105) mg/dL POC Glucose (58-89) Calculated Osmolality 283 (280-300) Calcium 9.0 (8.6-10.3) mg/dL Total Bilirubin 0.4 (0.3-1.0) mg/dL AST 14 (13-39) Units/L ALT 13 (7-52) Units/L Alkaline Phosphatase 54 (34-104) Units/L Troponin I (< 0.04) ng/mL Serum Total Protein 6.4 (6.4-8.9) g/dL Albumin 4.3 (3.5-5.7) g/dL Globulin 2.1 L (2.4-3.5) g/dL Albumin/Globulin Ratio 2.0 (1.1-2.2) Urine Color (Yellow) Urine Clarity (Clear) Urine pH (5.0-8.0) pH Units Ur Specific Maple (1.010-1.025) Urine Protein (Neg-Trace) mg/dL Urine Glucose (UA) (Normal) mg/dL Urine Ketones (Negative) mg/dL Urine Blood (Negative) Urine Nitrite (Negative) Urine Bilirubin (Negative) Urine Urobilinogen (Normal) mg/dL Ur Leukocyte Esterase (Negative) Urine Microscopic WBC (0-3) per hpf Ur Squamous Epith Cells (None-Few) per lpf Urine Bacteria (None-Few) per hpf Urine Mucus (Few) Ur Culture Indicated? (NO) 06/06/17 Range/Units 17:18 WBC (4.3-11.1) K/mcL RBC (3.82-4.97) M/mcL Hgb (11.5-15.4) g/dL Hct (35.3-44.9) % MCV (83.0-100.0) fL MCH (28.0-33.3) pg MCHC (31.6-35.5) g/dL RDW (11.5-14.5) % Plt Count (140-400) K/mcL MPV (9.4-12.4) fL Immature Gran % (0-4) % Seg Neutrophils % % Lymphocytes % % Monocytes % % Eosinophils % % Basophils % % Neutrophils # (1.6-8.9) K/mcL Lymphocytes # (0.6-4.6) K/mcL Monocytes # (0.0-1.3) K/mcL Eosinophils # (0.0-0.6) K/mcL Basophils # (0.0-0.2) K/mcL PT (9.4-12.1) Seconds INR APTT (26.0-36.0) Seconds Sodium (136-145) mEq/L Potassium (3.5-5.1) mEq/L Chloride (98-107) mEq/L Carbon Dioxide (23-29) mEq/L BUN (8-23) mg/dL Creatinine (0.60-1.20) mg/dL Est GFR ( Amer) (> 60) Est GFR (Non-Af Amer) (> 60) BUN/Creatinine Ratio (6-26) Glucose (70-105) mg/dL POC Glucose (58-89) Calculated Osmolality (280-300) Calcium (8.6-10.3) mg/dL Total Bilirubin (0.3-1.0) mg/dL AST (13-39) Units/L ALT (7-52) Units/L Alkaline Phosphatase (34-104) Units/L Troponin I < 0.03 (< 0.04) ng/mL Serum Total Protein (6.4-8.9) g/dL Albumin (3.5-5.7) g/dL Globulin (2.4-3.5) g/dL Albumin/Globulin Ratio (1.1-2.2) Urine Color (Yellow) Urine Clarity (Clear) Urine pH (5.0-8.0) pH Units Ur Specific Maple (1.010-1.025) Urine Protein (Neg-Trace) mg/dL Urine Glucose (UA) (Normal) mg/dL Urine Ketones (Negative) mg/dL Urine Blood (Negative) Urine Nitrite (Negative) Urine Bilirubin (Negative) Urine Urobilinogen (Normal) mg/dL Ur Leukocyte Esterase (Negative) Urine Microscopic WBC (0-3) per hpf Ur Squamous Epith Cells (None-Few) per lpf Urine Bacteria (None-Few) per hpf Urine Mucus (Few) Ur Culture Indicated? (NO) - Radiology Data Radiology results reviewed: Yes I reviewed the patient's radiology results. - EKG Data EKG attestation: Yes I reviewed and interpreted this EKG. EKG results narrative: Sinus rhythm rate 78. R1 52 QRS 84 QT 360 axis LIX Critical Care Time Critical Care Time: No
[2017-06-06 17:17] LABS: Bilirubin,Urine Negative (Negative); Blood,Urine Negative (Negative); Clarity,Urine Cloudy (Clear); Color,Urine Yellow (Yellow); Glucose,Urine (UA) Normal (Normal); Ketones,Urine Trace mg/dL (Negative); Leukocyte Esterase,Urine Small (Negative); Nitrite,Urine Negative (Negative); Protein,Urine Trace mg/dL (Neg-Trace); Specific Gravity,Urine 1.015 (1.010-1.025); Urobilinogen,Urine Normal (Normal)
[2017-06-06 17:22] LABS: Bacteria,Urine Moderate per hpf (None-Few); Mucus,Urine Moderate (Few); Squamous Epithelial Cell,Urine Many per lpf (None-Few); WBC,Urine 30-50 per hpf (0-3)
[2017-06-06 17:26] LABS: Basophils % 0.1 %; Eosinophils # 0.1 K/mcL (0.0-0.6); Eosinophils % 1.4 %; Hematocrit 27.9 % (35.3-44.9); Hemoglobin 9.1 g/dL (11.5-15.4); Immature Granulocytes % 0.3 % (0-4); Lymphocytes # 0.7 K/mcL (0.6-4.6); Lymphocytes % 10.7 %; Mean Corpuscular HGB Conc 32.6 g/dL (31.6-35.5); Mean Corpuscular Hemoglobin 31.6 pg (28.0-33.3); Mean Corpuscular Volume 96.9 fL (83.0-100.0); Mean Platelet Volume 9.3 fL (9.4-12.4); Monocytes # 0.6 K/mcL (0.0-1.3); Monocytes % 8.2 %; Neutrophils # 5.5 K/mcL (1.6-8.9); Platelet Count 195 K/mcL (140-400); Red Blood Count 2.88 M/mcL (3.82-4.97); Red Cell Distribution Width 13.5 % (11.5-14.5); Segmented Neutrophils % 79.3 %
[2017-06-06 17:41] LABS: Albumin 4.3 g/dL (3.5-5.7); Bilirubin,Total 0.4 mg/dL (0.3-1.0); Globulin 2.1 g/dL (2.4-3.5); Potassium 5.3 mEq/L (3.5-5.1); Total Protein 6.4 g/dL (6.4-8.9)
[2017-06-06] MEDS ORDERED: *HR* Dextrose 50 % in Water (Syg) 50 ML SYRINGE IVP PRN (20:13)
[2017-06-06] MEDS ORDERED: Ondansetron ODT 4 MG TAB.RAPDIS SL PRN (20:13)
[2017-06-06] MEDS ORDERED: Dextrose Gel 15 GM PO PRN ×2 (20:13)
[2017-06-06] MEDS ORDERED: Naloxone 0.4 MG/ML INJ IVP PRN (20:13)
[2017-06-06] MEDS ORDERED: D5% in Water 1,000 ML IVC PRN (20:13)
[2017-06-06] MEDS: Lactobacillus 1 EACH CAP.SPRINK PO SCH (22:40)
[2017-06-06] MEDS: Ranolazine 500 MG TAB.ER.12H PO SCH (22:40)
[2017-06-06] MEDS: 0.9 % Sodium Chloride 1,000 ML IVC SCH (22:42)
[2017-06-07] MEDS ORDERED: 0.9 % Sodium Chloride 250 ML IVC ONE (04:45)
[2017-06-07] MEDS: Levothyroxine 25 MCG TABLET PO SCH (06:08)
[2017-06-07] MEDS: 0.9 % Sodium Chloride 1,000 ML IVC SCH (06:15)
[2017-06-07 06:37] LABS: Basophils % 0.2 %; Eosinophils # 0.1 K/mcL (0.0-0.6); Eosinophils % 2.3 %; Hematocrit 23.2 % (35.3-44.9); Hemoglobin 7.6 g/dL (11.5-15.4); Immature Granulocytes % 0.2 % (0-4); Lymphocytes # 0.5 K/mcL (0.6-4.6); Lymphocytes % 11.3 %; Mean Corpuscular HGB Conc 32.8 g/dL (31.6-35.5); Mean Corpuscular Hemoglobin 31.8 pg (28.0-33.3); Mean Corpuscular Volume 97.1 fL (83.0-100.0); Monocytes # 0.3 K/mcL (0.0-1.3); Monocytes % 7.7 %; Neutrophils # 3.5 K/mcL (1.6-8.9); Platelet Count 155 K/mcL (140-400); Red Blood Count 2.39 M/mcL (3.82-4.97); Red Cell Distribution Width 13.7 % (11.5-14.5); Segmented Neutrophils % 78.3 %
[2017-06-07] MEDS: Insulin LISPRO 300 UNITS/3 ML VIAL SQ SCH ×3 (09:00→23:17)
[2017-06-07] MEDS ORDERED: *HR* Metformin 500 MG TABLET PO SCH (09:00)
[2017-06-07] MEDS: Lactobacillus 1 EACH CAP.SPRINK PO SCH ×2 (09:00→23:16)
[2017-06-07] MEDS: Ranolazine 500 MG TAB.ER.12H PO SCH ×2 (09:00→23:15)
[2017-06-07] MEDS: Ascorbic Acid 500 MG TABLET PO SCH (09:00)
--- NOTE | 2017-06-07 15:59 | Internal Med History&Physical ---
Date of Encounter: 06/07/17 Time of Encounter: 15:20 Assessment and Plan (1) Syncope Current visit: Yes Status: Acute Etiology not obvious. She has been placed on telemetry. Orthostatic vital signs will be checked in a.m. Lisinopril apparently was restarted after discharge from [facility] in January. This will be held for now and blood pressure monitored Qualifiers: Syncope type: unspecified Qualified Code(s): R55 - Syncope and collapse (2) UTI (urinary tract infection) Current visit: No Status: Acute Urine culture was ordered. She was given Rocephin IV in emergency room. I will start her on Septra DS twice a day empirically. Qualifiers: Urinary tract infection type: acute cystitis Hematuria presence: without hematuria Qualified Code(s): N30.00 - Acute cystitis without hematuria (3) Acute renal insufficiency Current visit: No Status: Resolved We will hold lisinopril and start IV fluids. Recheck labs in a.m. (4) Hyperkalemia Current visit: Yes Status: Acute Suspect due to acute renal insufficiency with use of lisinopril. We will give IV fluids and hold lisinopril. Recheck labs in a.m. (5) Anemia Current visit: Yes Status: Acute Unimproved despite use of ferrous sulfate and vitamin C since January. We will recheck anemia testing in a.m. Qualifiers: Anemia type: unspecified type Qualified Code(s): D64.9 - Anemia, unspecified (6) Hypertension Current visit: Yes Status: Chronic We will hold lisinopril but continue Lopressor. We will check orthostatic vital signs in a.m. Qualifiers: Hypertension type: essential hypertension Qualified Code(s): I10 - Essential (primary) hypertension Internal Medicine - H&P: HPI Chief complaint: Syncope Admitted From: Emergency Dept Plans for Post Hospital Care: Home History of present illness: Ms. Tomas is a 71 year old female who came to emergency room stating she had 3 syncopal episodes at home. Each episode occurred while she was standing. She perceives she attempted catch herself. There was no injury sustained and she estimates she was unconscious for approximately 5 minutes with each episode. There was no loss of bowel or bladder control. She called the squad after the third episode and was brought to emergency room and evaluated. She was admitted to [facility] floor for ongoing care needs. She states she feels back to her baseline now. She denies any previous syncopal or near-syncopal episodes. She denies orthostatic symptoms on arising from a seated position. Her neurologic history is negative for large distribution strokes or seizures. Her cardiovascular history is pertinent for hypertension. She has known ASPVD and ASHD with a cardiac stent placed approximately 2011. She has not had further stress test since the stent. She denies ME heart failure DVT or pulmonary embolus. Past Med Surg Social Fam HX - Past Medical History Medical history: diabetes, other Psychiatric history: no psych history - Past Surgical History Surgical History: angioplasty/stent - Social History Smoking Status: Former smoker Smokeless Tobacco Status: No Alcohol use: none Drug use: none - Family History Brother Name: Raman Living Status: Hx Family Cancer: Yes Internal Medicine - H&P: Meds Cilostazol 100 mg PO BID 05/22/15 [History] Levothyroxine [Synthroid] 0.05 mg PO DAILY 05/22/15 [History] Lovastatin 40 mg PO HS 05/22/15 [History] Metoprolol [Lopressor] 25 mg PO BID 05/22/15 [History] Ranolazine [Ranexa] 500 mg PO BID 05/22/15 [History] metFORMIN [Glucophage] 500 mg PO DAILY 05/22/15 [History] Clopidogrel [Plavix] 75 mg PO DAILY 07/01/16 [History] Ascorbic Acid [Vitamin C] 500 mg PO DAILY #30 tablet.er 02/11/17 [Rx] Cefuroxime PO [Ceftin] 500 mg PO Q12HR #6 tablet 02/11/17 [Rx] Ferrous Sulfate 325 mg PO DAILY #30 tablet 02/11/17 [Rx] Acetaminophen [Tylenol] 500 mg PO Q6HR PRN #20 tablet 03/22/17 [Rx] 3 Allergy/AdvReac Type Severity Reaction Status Date / Time Penicillins Allergy Hives Verified 03/22/17 17:51 All Systems PM: A 10-system review of systems was performed and is negative for pertinent findings except as documented above in the HPI. Review of systems: Review of systems from her January 2017 [facility] hospitalization were reviewed and revised as below. Gen.: Her weight has decreased from 71.532 kg on 02/11/2017 to 61.235 kg on admission now. She was unaware of the weight loss but states she had noticed her clothes were fitting more loosely recently. Cardiovascular: As per history of present illness Respiratory: She smoked from age [age] up to 4 packs per day. She denies known chronic lung disease and does not use home oxygen. GI: She denies disorders of her liver gallbladder or exocrine pancreas : She denies hematuria dysuria or kidney stones Neurologic: As per history of present illness Endocrine: She was diagnosed with DM 2 approximately 2006. She has hypothyroidism and hyperlipidemia Hematology/oncology: She denies blood disorders cancers or anemia Psychiatric: She denies anxiety depression or other mental health issues Musk skeletal: She denies arthritis gout or other bone joint or muscle disorders. - Constitutional Vitals: Temp Pulse Resp BP Pulse Ox 98.6 F 97 20 117/58 98 06/07/17 15:43 06/07/17 15:43 06/07/17 15:43 06/07/17 15:43 06/07/17 15:43 Exam: General: She is a well-developed well-nourished female resting comfortably in bed who appears in no acute distress HEENT: Head is atraumatic and normocephalic. Eyes: EOMI. There is no scleral icterus. Mouth: Mucosa is moist. Neck: Supple and nontender. There is no thyromegaly or adenopathy noted. Heart: Regular without murmurs gallops or ectopics Lungs: No wheezes or crackles are heard. Abdomen: Soft and nontender. No masses or guarding are noted. Extremities: There is no cyanosis edema or clubbing noted. Dorsalis pedis and posttibial pulses are 1-2 over 2 bilaterally. Neurologic: Mental status: She is talkative and a good historian. Cranial nerves: Smile is symmetric. Forehead wrinkles bilaterally. Tongue protrudes midline. EOMI. Motor: There is no pronator drift. Cerebellar: Finger to nose is intact bilaterally. Skin: Warm and dry Internal Med - H&P Results - Labs CBC & Chem 7: 06/07/17 05:29 06/06/17 17:18 Labs: Short CBC 06/07/17 Range/Units 05:29 WBC 4.4 (4.3-11.1) K/mcL Hgb 7.6 L D (11.5-15.4) g/dL Hct 23.2 L (35.3-44.9) % Plt Count 155 (140-400) K/mcL Neutrophils # 3.5 (1.6-8.9) K/mcL Cardiac Enzymes 06/06/17 06/07/17 Range/Units 23:13 05:29 Troponin I < 0.03 < 0.03 (< 0.04) ng/mL
[2017-06-07] MEDS: Sulfamethoxazole/Trimeth DS 1 EACH TABLET PO SCH (23:16)
[2017-06-08] MEDS: Levothyroxine 25 MCG TABLET PO SCH (06:30)
[2017-06-08 07:02] LABS: Basophils % 0.4 %; Eosinophils # 0.1 K/mcL (0.0-0.6); Eosinophils % 1.5 %; Hematocrit 26.3 % (35.3-44.9); Hemoglobin 8.7 g/dL (11.5-15.4); Immature Granulocytes % 0.6 % (0-4); Mean Corpuscular HGB Conc 33.1 g/dL (31.6-35.5); Mean Corpuscular Hemoglobin 31.4 pg (28.0-33.3); Mean Corpuscular Volume 94.9 fL (83.0-100.0); Mean Platelet Volume 9.9 fL (9.4-12.4); Monocytes # 0.6 K/mcL (0.0-1.3); Monocytes % 11.2 %; Neutrophils # 3.5 K/mcL (1.6-8.9); Platelet Count 189 K/mcL (140-400); Red Blood Count 2.77 M/mcL (3.82-4.97); Red Cell Distribution Width 13.4 % (11.5-14.5); Segmented Neutrophils % 67.3 %
[2017-06-08 07:20] VITALS: BP 133/66
[2017-06-08 07:26] LABS: BUN/Creatinine Ratio 13 (6-26); Blood Urea Nitrogen 13 mg/dL (8-23); Calcium 9.2 mg/dL (8.6-10.3); Carbon Dioxide 22 mEq/L (23-29); Chloride 108 mEq/L (98-107); Glucose 113 mg/dL (70-105); Osmolality,Calculated 283 (280-300); Potassium 4.6 mEq/L (3.5-5.1); Sodium 136 mEq/L (136-145); eGFR For African Americans > 60 (> 60); eGFR For Non-African Americans 56 (> 60)
[2017-06-08] MEDS: Insulin LISPRO 300 UNITS/3 ML VIAL SQ SCH (08:12)
[2017-06-08] MEDS: Sulfamethoxazole/Trimeth DS 1 EACH TABLET PO SCH (10:25)
[2017-06-08] MEDS: Ranolazine 500 MG TAB.ER.12H PO SCH (10:26)
[2017-06-08] MEDS: Lactobacillus 1 EACH CAP.SPRINK PO SCH (10:27)
[2017-06-08] MEDS: Ascorbic Acid 500 MG TABLET PO SCH (10:27)
--- NOTE | 2017-06-08 10:57 | Discharge Summary ---
Date of Encounter: 06/08/17 Time of Encounter: 10:45 - Discharge Diagnosis (1) Syncope Priority: Primary Status: Acute Qualifiers: Syncope type: unspecified Qualified Code(s): R55 - Syncope and collapse (2) UTI (urinary tract infection) Priority: Secondary Status: Acute Qualifiers: Urinary tract infection type: acute cystitis Hematuria presence: without hematuria Qualified Code(s): N30.00 - Acute cystitis without hematuria (3) Acute renal insufficiency Priority: Secondary Status: Acute (4) Hyperkalemia Priority: Secondary Status: Resolved (5) Anemia Priority: Secondary Status: Acute Qualifiers: Anemia type: unspecified type Qualified Code(s): D64.9 - Anemia, unspecified (6) Hypertension Priority: Secondary Status: Chronic Qualifiers: Hypertension type: essential hypertension Qualified Code(s): I10 - Essential (primary) hypertension - Discharge Medications Prescriptions: Lactobacillus [Culturelle] 1 each PO BID #4 cap.sprink Sulfamethoxazole/Trimeth DS [Bactrim DS] 1 each PO BID #4 tablet Home Medications: Cilostazol 100 mg PO BID 05/22/15 [History] Levothyroxine [Synthroid] 0.05 mg PO DAILY 05/22/15 [History] Lovastatin 40 mg PO HS 05/22/15 [History] Metoprolol [Lopressor] 25 mg PO BID 05/22/15 [History] Ranolazine [Ranexa] 500 mg PO BID 05/22/15 [History] metFORMIN [Glucophage] 500 mg PO DAILY 05/22/15 [History] Clopidogrel [Plavix] 75 mg PO DAILY 07/01/16 [History] Ascorbic Acid [Vitamin C] 500 mg PO DAILY #30 tablet.er 02/11/17 [Rx] Ferrous Sulfate 325 mg PO DAILY #30 tablet 02/11/17 [Rx] Acetaminophen [Tylenol] 500 mg PO Q6HR PRN #20 tablet 03/22/17 [Rx] Lactobacillus [Culturelle] 1 each PO BID #4 cap.sprink 06/08/17 [Rx] Sulfamethoxazole/Trimeth DS [Bactrim DS] 1 each PO BID #4 tablet 06/08/17 [Rx] Allergies/Adverse Reactions: 3 Allergy/AdvReac Type Severity Reaction Status Date / Time Penicillins Allergy Hives Verified 03/22/17 17:51 Procedures/tests Complete & Pending: Procedures Performed prior 72 hours Category Date Time Status ECG 12 lead ECG [ECG] Routine Y 06/06/17 16:34 Completed Date of admission: 06/06/17 18:15 Primary care physician: Harry Quintero CNP - Patient Status Disposition: Home, Self-Care Condition: Fair Functional capacity at discharge: independent ambulation Overall status at discharge: patient is progressing back to baseline - Discharge Instructions Follow Up With: Harry Quintero CNP [Primary Care Provider] - 1 week - Diet and Activity Activity: resume usual activities as tolerated Diet: advance to your usual diet Hospital course: Ms. Tomas is a 71 year old female who came to emergency room stating she had 3 syncopal episodes at home. Each episode occurred while she was standing. She perceives she attempted catch herself. There was no injury sustained and she estimates she was unconscious for approximately 5 minutes with each episode. There was no loss of bowel or bladder control. She called the squad after the third episode and was brought to emergency room and evaluated. She was admitted to [facility] for ongoing care needs. Initial orders were written by the emergency room physician. I saw her on June 07 and performed the history and physical. She had no further syncopal or near-syncopal episodes. IV fluids were given and azotemia significantly improved with BUN and creatinine decreasing to 13 and 0.98 respectively by day of discharge with estimated GFR 56. Lisinopril was held will not be restarted at discharge. Hyperkalemia resolved with potassium 4.6 on day of discharge. Hemoglobin decreased to 7.6 on June 07 but rakesh to 8.7 on June 08. Her PCP can order anemia testing since she has not responded significantly to ferrous sulfate with vitamin C after several weeks of therapy. Orthostatic vital signs on June 08 showed no changes. Patient felt stable for discharge home. She will follow with her PCP within one week. - Time Spent with Patient Total time spent providing and/or coordinating discharge services: - Constitutional Vitals: Temp Pulse Resp BP Pulse Ox 98.7 F 81 17 133/66 100 06/08/17 07:20 06/08/17 07:20 06/08/17 07:20 06/08/17 07:20 06/08/17 07:20
[2017-06-08 12:58] LABS: % Iron Saturation 15 % (15-50); Ferritin 43 ng/ml (10-120); Iron 65 mcg/dL (50-170); Transferrin 310 mg/dL (203-362)
[2017-06-09] MEDS ORDERED: Ascorbic Acid 500 MG TABLET PO SCH (07:30)
--- NOTE | 2017-06-09 07:55 | Electrocardiograph Report ---
[address] [place], [place] [address] Test Date: 2017-06-06 Pat Name: Demetria Tomas Department: [id number] Room: [facility] Gender: F Mobile Home [employer]orer: [id number] : 1945 Requested By: Seferino Jenkins Order Number: [id number] Reading MD: Kwame Castro MD Measurements Intervals Martinez Rate: 78 P: 63 VA: 152 QRS: 59 QRSD: 84 T: 80 QT: 360 QTc: 393 Interpretive Statements SINUS RHYTHM Electronically Signed On 06-09-2017 6:48:37 EST by Kwame Castro MD
== END 2017-06-08 12:03 | disposition home or self-care (01) ==
LOC: EMEROOPIK 16:26 → INPPIK 16:26
PROVIDERS: ADMIT Internal Medicine; ATTEND Internal Medicine

== ENCOUNTER 2019-03-03 20:09 | Observation (INO) ==
[2019-03-03] MEDS ORDERED: 0.9 % Sodium Chloride 500 ML IVC ONE (20:15)
[2019-03-03 20:47] LABS: Basophils % 0.4 %; Eosinophils # 0.1 K/mcL (0.0-0.6); Eosinophils % 2.2 %; Hematocrit 30.1 % (35.3-44.9); Immature Granulocytes % 0.4 % (0-4); Lymphocytes # 1.2 K/mcL (0.6-4.6); Lymphocytes % 25.7 %; Mean Corpuscular HGB Conc 33.2 g/dL (31.6-35.5); Mean Corpuscular Hemoglobin 30.9 pg (28.0-33.3); Mean Corpuscular Volume 92.9 fL (83.0-100.0); Mean Platelet Volume 9.6 fL (9.4-12.4); Monocytes # 0.3 K/mcL (0.0-1.3); Monocytes % 6.9 %; Neutrophils # 2.9 K/mcL (1.6-8.9); Platelet Count 172 K/mcL (140-400); Red Blood Count 3.24 M/mcL (3.82-4.97); Red Cell Distribution Width 13.3 % (11.5-14.5); Segmented Neutrophils % 64.4 %; White Blood Count 4.5 K/mcL (4.3-11.1)
[2019-03-03 20:53] LABS: Prothrombin Time 11.2 Seconds (9.4-12.1)
[2019-03-03 21:04] LABS: BUN/Creatinine Ratio 17 (6-26); Blood Urea Nitrogen 20 mg/dL (8-23); Calcium 9.4 mg/dL (8.6-10.3); Carbon Dioxide 26 mEq/L (23-29); Chloride 106 mEq/L (98-107); Glucose 113 mg/dL (70-105); Osmolality,Calculated 293 (280-300); Potassium 3.5 mEq/L (3.5-5.1); Sodium 140 mEq/L (136-145); eGFR For African Americans 53 (> 60); eGFR For Non-African Americans 43 (> 60)
[2019-03-03 21:05] LABS: Troponin I < 0.03 ng/mL (< 0.04)
[2019-03-03] MEDS ORDERED: D5% in Water 1,000 ML IVC PRN (23:27)
[2019-03-03] MEDS ORDERED: MOM Conc 10 ML UD.LIQ PO PRN (23:27)
[2019-03-03] MEDS ORDERED: Ondansetron ODT 4 MG TAB.RAPDIS SL PRN (23:27)
[2019-03-03] MEDS ORDERED: Temazepam 15 MG CAPSULE PO PRN (23:27)
[2019-03-03] MEDS ORDERED: Dextrose Gel 15 GM/37.5 ML TUBE PO PRN ×2 (23:27)
[2019-03-03] MEDS ORDERED: Naloxone 0.4 MG/ML INJ IVP PRN (23:27)
[2019-03-03] MEDS ORDERED: *HR* Dextrose 50 % in Water (Syg) 50 ML SYRINGE IVP PRN (23:27)
[2019-03-03] MEDS ORDERED: Mag Hydrox/Al Hydrox/Simeth 30 ML UDC PO PRN (23:27)
[2019-03-04] MEDS: 0.9 % Sodium Chloride 1,000 ML IVC SCH ×3 (00:28→08:37)
[2019-03-04] MEDS: Insulin LISPRO 300 UNITS/3 ML VIAL SQ SCH ×3 (08:01→16:25)
[2019-03-04] MEDS ORDERED: *HR* Dextrose 50 % in Water (Vial) 50 ML VIAL IVP PRN (09:15)
[2019-03-04 10:43] LABS: Magnesium 1.7 mg/dL (1.6-2.6)
[2019-03-04 10:53] LABS: Thyroid Stimulating Hormone 22.752 mcIU/mL (0.340-5.600)
[2019-03-04 20:58] LABS: Folate > 22.3 ng/mL (3.0-16.0); Vitamin B12 344 pg/mL (250-1100)
[2019-03-04 21:35] LABS: Estimated Average Glucose 128 mg/dl
[2019-03-05] MEDS: Insulin LISPRO 300 UNITS/3 ML VIAL SQ SCH ×3 (07:58→16:37)
[2019-03-05 10:07] VITALS: BP 131/66
== END 2019-03-05 17:32 | disposition home or self-care (01) ==
LOC: EMEROOPIK 20:09 → INPPIK 20:09
PROVIDERS: ADMIT Internal Medicine; ATTEND Internal Medicine

== ENCOUNTER 2019-05-06 15:55 | Observation (INO) ==
[2019-05-06] MEDS ORDERED: methylPREDNISolone 125 MG/2 ML VIAL IVP ONE (16:03)
[2019-05-06] MEDS ORDERED: Albuterol 2.5 MG/3 ML NEBULIZER IH ONE (16:03)
[2019-05-06] MEDS ORDERED: Ipratropium/Albuterol Neb 3 ML IH ONE (16:03)
[2019-05-06] MEDS ORDERED: ALPRAZolam 0.5 MG TABLET PO ONE (16:04)
[2019-05-06 16:22] LABS: Basophils % 0.2 %; Eosinophils # 0.1 K/mcL (0.0-0.6); Eosinophils % 2.1 %; Hematocrit 30.4 % (35.3-44.9); Hemoglobin 10.5 g/dL (11.5-15.4); Immature Granulocytes % 0.2 % (0-4); Lymphocytes % 22.2 %; Mean Corpuscular HGB Conc 34.5 g/dL (31.6-35.5); Mean Corpuscular Hemoglobin 31.6 pg (28.0-33.3); Mean Corpuscular Volume 91.6 fL (83.0-100.0); Mean Platelet Volume 9.3 fL (9.4-12.4); Monocytes # 0.6 K/mcL (0.0-1.3); Neutrophils # 2.7 K/mcL (1.6-8.9); Platelet Count 155 K/mcL (140-400); Red Blood Count 3.32 M/mcL (3.82-4.97); Red Cell Distribution Width 13.5 % (11.5-14.5); Segmented Neutrophils % 62.3 %; White Blood Count 4.3 K/mcL (4.3-11.1)
[2019-05-06 16:31] LABS: INR 1.1
[2019-05-06] MEDS ORDERED: Isovue-370 500 ML BOTTLE IVP ONE (16:35)
[2019-05-06 16:36] LABS: ABG Base Excess 0 mEq/L (-2 to 3); ABG HCO3 24 mEq/L (21-27); ABG Oxygen Saturation 94 % (95-98); ABG PCO2 35 mmHg (35-45); ABG PH 7.43 pH Units (7.32-7.45); ABG PO2 67 mmHg (85-104); ABG TCO2 25 mEq/L (20-26)
[2019-05-06 16:49] LABS: Troponin I < 0.03 ng/mL (< 0.04)
[2019-05-06 16:51] LABS: BUN/Creatinine Ratio 18 (6-26); Blood Urea Nitrogen 19 mg/dL (8-23); Calcium 9.5 mg/dL (8.6-10.3); Carbon Dioxide 23 mEq/L (23-29); Chloride 105 mEq/L (98-107); Glucose 101 mg/dL (70-105); Osmolality,Calculated 292 (280-300); Potassium 3.3 mEq/L (3.5-5.1); Sodium 140 mEq/L (136-145); eGFR For African Americans > 60 (> 60); eGFR For Non-African Americans 52 (> 60)
[2019-05-06] MEDS ORDERED: Furosemide 20 MG/2 ML VIAL IVP ONE (17:12)
[2019-05-06] MEDS ORDERED: Naloxone 0.4 MG/ML INJ IVP PRN ×2 (17:18→18:40)
[2019-05-06] MEDS ORDERED: Doxycycline 100 MG in 0.9 % Sodium Chloride Mini Bag 100 ML IVPB SCH (18:00)
[2019-05-06] MEDS ORDERED: Potassium Citrate 10 MEQ TABLET.ER PO ONE (19:42)
[2019-05-06] MEDS: Ipratropium/Albuterol Neb 3 ML IH SCH (21:28)
[2019-05-06] MEDS: Ranolazine 500 MG TAB.ER.12H PO SCH (22:31)
[2019-05-06] MEDS: Nitrofurantoin (BID) 100 MG CAPSULE PO SCH (22:31)
[2019-05-06] MEDS ORDERED: Ipratropium/Albuterol Neb 3 ML IH SCH (23:00)
[2019-05-07] MEDS ORDERED: Doxycycline 100 MG in 0.9 % Sodium Chloride Mini Bag 100 ML IVPB SCH (06:00)
[2019-05-07] MEDS ORDERED: *HR* Enoxaparin 40 MG/0.4 ML SYRINGE SQ SCH (06:00)
[2019-05-07 06:06] LABS: Hematocrit 28.4 % (35.3-44.9); Hemoglobin 9.8 g/dL (11.5-15.4); Mean Corpuscular HGB Conc 34.5 g/dL (31.6-35.5); Mean Corpuscular Hemoglobin 31.5 pg (28.0-33.3); Mean Corpuscular Volume 91.3 fL (83.0-100.0); Mean Platelet Volume 9.9 fL (9.4-12.4); Platelet Count 156 K/mcL (140-400); Red Blood Count 3.11 M/mcL (3.82-4.97); Red Cell Distribution Width 13.5 % (11.5-14.5); White Blood Count 3.9 K/mcL (4.3-11.1)
[2019-05-07 06:24] LABS: Calcium 9.3 mg/dL (8.6-10.3); Potassium 3.3 mEq/L (3.5-5.1)
[2019-05-07 07:33] VITALS: BP 131/66
[2019-05-07] MEDS: Ipratropium/Albuterol Neb 3 ML IH SCH (08:47)
[2019-05-07] MEDS ORDERED: *HR* Metformin 500 MG TABLET PO SCH (09:00)
[2019-05-07] MEDS ORDERED: Furosemide 20 MG/2 ML VIAL IVP SCH (09:00)
[2019-05-07] MEDS: Ranolazine 500 MG TAB.ER.12H PO SCH (10:08)
[2019-05-07] MEDS: Nitrofurantoin (BID) 100 MG CAPSULE PO SCH (10:08)
[2019-05-07] MEDS ORDERED: Ipratropium/Albuterol Neb 3 ML IH SCH (17:00)
== END 2019-05-07 12:55 | disposition home or self-care (01) ==
LOC: INPPIK 15:55 → EMEROOPIK 15:55 → INPPIK 18:35
PROVIDERS: ADMIT Family Medicine; ATTEND Family Medicine

== ENCOUNTER 2020-02-06 15:18 | Observation (INO) ==
[2020-02-06] MEDS ORDERED: 0.9 % Sodium Chloride 500 ML IVC ONE (15:23)
[2020-02-06] MEDS ORDERED: Nitroglycerin 1 INCH/GM PACKET TP ONE (15:23)
[2020-02-06] MEDS ORDERED: Ondansetron 4 MG/2 ML VIAL IVP ONE (15:23)
[2020-02-06 15:46] LABS: Basophils % 0.2 %; Eosinophils # 0.1 K/mcL (0.0-0.6); Hematocrit 30.5 % (35.3-44.9); Hemoglobin 10.6 g/dL (11.5-15.4); Immature Granulocytes % 0.2 % (0-4); Lymphocytes # 0.9 K/mcL (0.6-4.6); Lymphocytes % 19.7 %; Mean Corpuscular HGB Conc 34.8 g/dL (31.6-35.5); Mean Corpuscular Hemoglobin 31.3 pg (28.0-33.3); Mean Platelet Volume 9.6 fL (9.4-12.4); Monocytes # 0.4 K/mcL (0.0-1.3); Monocytes % 8.2 %; Neutrophils # 3.1 K/mcL (1.6-8.9); Platelet Count 171 K/mcL (140-400); Red Blood Count 3.39 M/mcL (3.82-4.97); Red Cell Distribution Width 13.8 % (11.5-14.5); Segmented Neutrophils % 69.7 %; White Blood Count 4.5 K/mcL (4.3-11.1)
[2020-02-06 15:50] LABS: Prothrombin Time 11.6 Seconds (9.4-12.1)
[2020-02-06 15:52] LABS: Activated Partial Thrombo Time 29.2 Seconds (26.0-36.0)
[2020-02-06 15:57] LABS: BUN/Creatinine Ratio 29 (6-26); Blood Urea Nitrogen 27 mg/dL (8-23); Calcium 8.6 mg/dL (8.6-10.3); Carbon Dioxide 24 mEq/L (23-29); Chloride 105 mEq/L (98-107); Glucose 130 mg/dL (70-105); Osmolality,Calculated 297 (280-300); Potassium 3.5 mEq/L (3.5-5.1); Sodium 140 mEq/L (136-145); eGFR For African Americans > 60 (> 60); eGFR For Non-African Americans 58 (> 60)
[2020-02-06 16:01] LABS: Troponin I < 0.03 ng/mL (< 0.04)
[2020-02-06] MEDS ORDERED: MOM Conc 10 ML UD.LIQ PO PRN (17:23)
[2020-02-06] MEDS ORDERED: Ondansetron 4 MG/2 ML VIAL IVP PRN (17:23)
[2020-02-06] MEDS ORDERED: Acetaminophen 325 MG TABLET PO PRN (17:23)
[2020-02-06] MEDS ORDERED: Ondansetron ODT 4 MG TAB.RAPDIS SL PRN (17:23)
[2020-02-06] MEDS ORDERED: Mag Hydrox/Al Hydrox/Simeth 30 ML UDC PO PRN (17:23)
[2020-02-06] MEDS ORDERED: Ibuprofen 400 MG TABLET PO PRN (17:23)
[2020-02-06] MEDS ORDERED: Naloxone 0.4 MG/ML INJ IVP PRN (17:23)
[2020-02-06] MEDS ORDERED: Nitroglycerin 0.4 MG TAB.SUBL SL PRN (17:33)
[2020-02-06 19:09] LABS: Bilirubin,Urine Negative (Negative); Blood,Urine Trace-intact (Negative); Clarity,Urine Clear (Clear); Color,Urine Yellow (Yellow); Glucose,Urine (UA) Normal (Normal); Ketones,Urine Negative (Negative); Leukocyte Esterase,Urine Negative (Negative); Nitrite,Urine Negative (Negative); PH,Urine 6.5 pH Units (5.0-8.0); Protein,Urine Negative (Neg-Trace); Urobilinogen,Urine Normal (Normal)
[2020-02-06 19:14] LABS: Bacteria,Urine Few per hpf (None-Few); RBC,Urine 0-3 per hpf (0-3); Squamous Epithelial Cell,Urine Few per hpf (None-Few); WBC,Urine 0-3 per hpf (0-3)
[2020-02-07 06:30] LABS: Basophils % 0.2 %; Eosinophils # 0.1 K/mcL (0.0-0.6); Eosinophils % 2.5 %; Hematocrit 29.5 % (35.3-44.9); Hemoglobin 9.9 g/dL (11.5-15.4); Immature Granulocytes % 0.2 % (0-4); Lymphocytes # 1.1 K/mcL (0.6-4.6); Lymphocytes % 21.5 %; Mean Corpuscular HGB Conc 33.6 g/dL (31.6-35.5); Mean Corpuscular Hemoglobin 30.3 pg (28.0-33.3); Mean Corpuscular Volume 90.2 fL (83.0-100.0); Mean Platelet Volume 9.8 fL (9.4-12.4); Monocytes # 0.5 K/mcL (0.0-1.3); Monocytes % 9.4 %; Neutrophils # 3.4 K/mcL (1.6-8.9); Platelet Count 162 K/mcL (140-400); Red Blood Count 3.27 M/mcL (3.82-4.97); Red Cell Distribution Width 13.6 % (11.5-14.5); Segmented Neutrophils % 66.2 %; White Blood Count 5.1 K/mcL (4.3-11.1)
[2020-02-07 06:55] LABS: Alanine Aminotransferase 15 Units/L (7-52); Albumin 3.6 g/dL (3.5-5.7); Albumin/Globulin Ratio 1.5 (1.1-2.2); Alkaline Phosphatase 67 Units/L (34-104); Aspartate Amino Transferase 21 Units/L (13-39); BUN/Creatinine Ratio 22 (6-26); Bilirubin,Total 0.4 mg/dL (0.3-1.0); Blood Urea Nitrogen 20 mg/dL (8-23); Calcium 8.8 mg/dL (8.6-10.3); Carbon Dioxide 28 mEq/L (23-29); Chloride 104 mEq/L (98-107); Globulin 2.4 g/dL (2.4-3.5); Glucose 91 mg/dL (70-105); Magnesium 1.9 mg/dL (1.6-2.6); Osmolality,Calculated 292 (280-300); Phosphorous 3.4 mg/dL (2.7-4.5); Potassium 3.9 mEq/L (3.5-5.1); Sodium 140 mEq/L (136-145); eGFR For African Americans > 60 (> 60); eGFR For Non-African Americans > 60 (> 60)
[2020-02-07 06:56] LABS: Troponin I < 0.03 ng/mL (< 0.04)
[2020-02-07] MEDS ORDERED: lisinopriL 10 MG TABLET PO SCH (09:00)
[2020-02-07] MEDS ORDERED: Perflutren Lipid Microsphere 1.3 ML in 0.9 % Sodium Chloride 8.7 ML IVP PRN (09:47)
[2020-02-07 11:57] VITALS: BP 121/65
[2020-02-07 13:18] LABS: Estimated Average Glucose 123 mg/dl
== END 2020-02-07 13:10 | disposition home or self-care (01) ==
LOC: INPPIK 15:18 → EMEROOPIK 15:18 → INPPIK 18:20
PROVIDERS: ADMIT Family Medicine; ATTEND Family Medicine

== ENCOUNTER 2021-12-06 18:32 | Observation (INO) ==
[2021-12-06 18:56] LABS: Basophils % 0.2 %; Eosinophils # 0.2 K/mcL (0.0-0.6); Eosinophils % 2.1 %; Immature Granulocytes % 0.4 % (0-4); Lymphocytes # 0.8 K/mcL (0.6-4.6); Lymphocytes % 9.4 %; Mean Corpuscular HGB Conc 32.3 g/dL (31.6-35.5); Mean Corpuscular Hemoglobin 28.8 pg (28.0-33.3); Mean Corpuscular Volume 89.3 fL (83.0-100.0); Mean Platelet Volume 9.4 fL (9.4-12.4); Monocytes # 0.5 K/mcL (0.0-1.3); Monocytes % 5.6 %; Neutrophils # 7.3 K/mcL (1.6-8.9); Platelet Count 275 K/mcL (140-400); Red Blood Count 3.47 M/mcL (3.82-4.97); Red Cell Distribution Width 13.6 % (11.5-14.5); Segmented Neutrophils % 82.3 %; White Blood Count 8.9 K/mcL (4.3-11.1)
[2021-12-06 19:13] LABS: Alanine Aminotransferase 16 Units/L (7-52); Albumin 3.8 g/dL (3.5-5.7); Albumin/Globulin Ratio 1.4 (1.1-2.2); Alkaline Phosphatase 114 Units/L (34-104); Amylase 44 Units/L (29-103); Aspartate Amino Transferase 20 Units/L (13-39); BUN/Creatinine Ratio 23 (6-26); Bilirubin,Total 0.5 mg/dL (0.3-1.0); Blood Urea Nitrogen 25 mg/dL (8-23); Calcium 9.1 mg/dL (8.6-10.3); Carbon Dioxide 21 mEq/L (23-29); Chloride 104 mEq/L (98-107); Globulin 2.7 g/dL (2.4-3.5); Glucose 109 mg/dL (70-105); Lipase 49 Units/L (11-82); Osmolality,Calculated 285 (280-300); Potassium 3.8 mEq/L (3.5-5.1); Sodium 135 mEq/L (136-145); Total Protein 6.5 g/dL (6.4-8.9); eGFR For African Americans > 60 (> 60); eGFR For Non-African Americans 50 (> 60)
[2021-12-06] MEDS ORDERED: Ondansetron 4 MG/2 ML VIAL IVP ONE (19:52)
[2021-12-06] MEDS ORDERED: 0.9 % Sodium Chloride 1,000 ML IV ONE (19:52)
[2021-12-06 19:56] LABS: Bilirubin,Urine Negative (Negative); Blood,Urine Trace-lysed (Negative); Clarity,Urine Cloudy (Clear); Color,Urine Yellow (Yellow); Glucose,Urine (UA) Normal (Normal); Ketones,Urine Negative (Negative); Leukocyte Esterase,Urine Moderate (Negative); Nitrite,Urine Negative (Negative); Protein,Urine Negative (Neg-Trace); Specific Gravity,Urine >= 1.030 (1.010-1.025); Urobilinogen,Urine Normal (Normal)
[2021-12-06 20:04] LABS: Bacteria,Urine Moderate per hpf (None-Few); Hyaline Casts,Urine Few per lpf (None Seen); Mucus,Urine Few per lpf (None-Few); RBC,Urine 0-3 per hpf (0-3); Squamous Epithelial Cell,Urine Moderate per hpf (None-Few); WBC,Urine 50-100 per hpf (0-3)
[2021-12-06] MEDS ORDERED: Ondansetron 4 MG/2 ML VIAL IVP PRN (20:46)
[2021-12-06] MEDS ORDERED: Naloxone 0.4 MG/ML INJ IVP PRN (20:46)
[2021-12-06] MEDS: 0.9 % Sodium Chloride 1,000 ML IVC SCH (22:59)
[2021-12-07] MEDS: lisinopriL 10 MG TABLET PO SCH (07:56)
[2021-12-07 08:27] LABS: Basophils % 0.2 %; Eosinophils # 0.2 K/mcL (0.0-0.6); Hematocrit 25.3 % (35.3-44.9); Immature Granulocytes % 0.4 % (0-4); Lymphocytes # 0.8 K/mcL (0.6-4.6); Lymphocytes % 16.9 %; Mean Corpuscular HGB Conc 31.6 g/dL (31.6-35.5); Mean Corpuscular Hemoglobin 28.7 pg (28.0-33.3); Mean Corpuscular Volume 90.7 fL (83.0-100.0); Mean Platelet Volume 10.2 fL (9.4-12.4); Monocytes # 0.4 K/mcL (0.0-1.3); Monocytes % 8.7 %; Neutrophils # 3.5 K/mcL (1.6-8.9); Platelet Count 168 K/mcL (140-400); Red Blood Count 2.79 M/mcL (3.82-4.97); Red Cell Distribution Width 13.6 % (11.5-14.5); Segmented Neutrophils % 70.8 %
[2021-12-07 08:48] LABS: BUN/Creatinine Ratio 21 (6-26); Blood Urea Nitrogen 21 mg/dL (8-23); Calcium 7.8 mg/dL (8.6-10.3); Carbon Dioxide 23 mEq/L (23-29); Chloride 110 mEq/L (98-107); Glucose 97 mg/dL (70-105); Osmolality,Calculated 289 (280-300); Potassium 3.8 mEq/L (3.5-5.1); Sodium 138 mEq/L (136-145); eGFR For African Americans > 60 (> 60); eGFR For Non-African Americans 54 (> 60)
[2021-12-07] MEDS: 0.9 % Sodium Chloride 1,000 ML IVC SCH (09:55)
[2021-12-08 06:54] VITALS: BP 144/71; PULSE 78; RESP 18; TEMP 98.2; O2SAT 100
[2021-12-08 08:17] LABS: Hematocrit 24.7 % (35.3-44.9); Mean Corpuscular HGB Conc 32.4 g/dL (31.6-35.5); Mean Corpuscular Hemoglobin 28.9 pg (28.0-33.3); Mean Corpuscular Volume 89.2 fL (83.0-100.0); Mean Platelet Volume 9.6 fL (9.4-12.4); Platelet Count 149 K/mcL (140-400); Red Blood Count 2.77 M/mcL (3.82-4.97); Red Cell Distribution Width 13.3 % (11.5-14.5); White Blood Count 4.4 K/mcL (4.3-11.1)
[2021-12-08 08:33] LABS: BUN/Creatinine Ratio 23 (6-26); Blood Urea Nitrogen 19 mg/dL (8-23); Calcium 8.1 mg/dL (8.6-10.3); Carbon Dioxide 25 mEq/L (23-29); Chloride 109 mEq/L (98-107); Glucose 122 mg/dL (70-105); Osmolality,Calculated 292 (280-300); Potassium 3.8 mEq/L (3.5-5.1); Sodium 139 mEq/L (136-145); eGFR For African Americans > 60 (> 60); eGFR For Non-African Americans > 60 (> 60)
[2021-12-08] MEDS: lisinopriL 10 MG TABLET PO SCH (10:02)
== END 2021-12-08 11:32 | disposition home or self-care (01) ==
LOC: EMEROOPIK 18:32 → INPPIK 18:32
PROVIDERS: ADMIT Family Medicine; ATTEND Family Medicine